=== PATIENT | male | born 1960 | race Two or more races ===

== ENCOUNTER 2025-03-08 13:26 | Inpatient (IN) | payer MEDICAID, MEDICARE ==
[2025-03-08] MEDS ORDERED: Albuterol 0.083% 2.5 MG/3 ML Neb Soln NEB PRN (14:31)
[2025-03-08] MEDS ORDERED: Ondansetron 4 MG Tab.DIS PO PRN (14:31)
[2025-03-09] MEDS ORDERED: Non-Formulary Medication 1 Each (Atorvastatin [Lipitor] 40 MG Tablet) PO SCH (09:00)
[2025-03-09] MEDS ORDERED: PRIMIDONE 250 MG PO SCH (09:00)
[2025-03-10] MEDS: Iopamidol 612 MG/ML 100 ML Bottle IV ONE (11:39)
[2025-03-23] MEDS: Barium Sulfate 98% Powder for Susp 340 GM Bottle PO ONE (14:03)
[2025-03-23] MEDS: Barium Sulfate 60% w/w Esophageal Crm 454 GM Tube PO ONE (14:03)
== END 2025-03-31 11:30 | disposition home or self-care (01) | DRG 57 ==
LOC: JP.MS 13:26
PROVIDERS: ADMIT Hospitalist; ATTEND Internal Medicine
DX: I69.398 Other sequelae of cerebral infarction (principal); B02.8 Zoster with other complications; R53.81 Other malaise; I69.328 Other speech and language deficits following cerebral infarction; I10 Essential (primary) hypertension; R26.89 Other abnormalities of gait and mobility; F17.200 Nicotine dependence, unspecified, uncomplicated; E78.5 Hyperlipidemia, unspecified; Z79.82 Long term (current) use of aspirin; Z88.8 Allergy status to other drugs, medicaments and biological substances; Z79.899 Other long term (current) drug therapy
CPT/HCPCS: 70491; 70491-26; 74230; 74230-26; 92526-GN; 92610-GN; 92611-GN; 93306; 97110-GO; 97110-GP; 97112-GP; 97116-GP; 97162-GP; 97166-GO; 97530-GO; 97530-GP; 97535-GO; 99305; 99307; 99308; 99309; 99315; A9270-GY; J1650; Q9967